=== PATIENT | male | born 1995 | race Caucasian/White ===

== ENCOUNTER 2023-06-02 23:48 | Emergency (ER) | payer OTHER ==
--- NOTE | 2023-06-03 01:22 | ER ---
Nurse's Notes [facility] Name: Yuly Sanford Age: 27 yrs Sex: Male : 1995 Arrival Date: 06/02/2023 Time: 23:48 Bed IW1 Private MD: Diagnosis: Acute upper respiratory infection, unspecified Presentation: 06/03 00:00 Chief complaint: Patient states: flu/covid like symptoms starting today. Coronavirus lg3 screen: Client denies travel out of the [place] in the last 14 days. Client presents with at least one sign or symptom that may indicate coronavirus-19. Standard/surgical mask placed on the client. Ebola Screen: No symptoms or risks identified at this time. Initial Sepsis Screen: Does the patient meet any 2 criteria? No. Patient's initial sepsis screen is negative. Does the patient have a suspected source of infection? No. Patient's initial sepsis screen is negative. Risk Assessment: Do you want to hurt yourself or someone else? Patient reports no desire to harm self or others. Onset of symptoms was June 02, 2023. 00:00 Method Of Arrival: Ambulatory lg3 00:00 Acuity: COLTON 4 lg3 Triage Assessment: 00:01 General: Appears in no apparent distress. comfortable, Behavior is calm, cooperative. lg3 Pain: Complains of pain in generalized body aches. EENT: No deficits noted. Reports nasal congestion. Neuro: No deficits noted. Velez Agitation-Sedation Scale (RASS): 0 - Alert and Calm Level of Consciousness is awake, alert, obeys commands, Oriented to person, place, time, situation. Cardiovascular: No deficits noted. Denies chest pain, Capillary refill < 3 seconds Clubbing of nail beds is absent JVD is absent Patient's skin is warm and dry. Respiratory: No deficits noted. Reports cough that is Airway is patent Respiratory effort is even, unlabored, Respiratory pattern is regular, symmetrical. GI: No deficits noted. No signs and/or symptoms were reported involving the gastrointestinal system. : No deficits noted. No signs and/or symptoms were reported regarding the genitourinary system. Derm: No deficits noted. No signs and/or symptoms reported regarding the dermatologic system. Skin is intact, is healthy with good turgor, Skin is dry, Skin is normal, Skin temperature is warm. Musculoskeletal: No deficits noted. Circulation, motion, and sensation intact. Range of motion: intact in all extremities. Historical: - Allergies: 00:02 No Known Allergies; snw 00:01 No Known Allergies; lg3 - Home Meds: 00:02 None [Active]; snw 00:01 None [Active]; lg3 - PMHx: 00:01 None; lg3 - PSHx: 00:01 right hand; right ankle; lg3 - Immunization history:: Adult Immunizations up to date. - Social history:: Smoking status: Patient reports the use of cigarette tobacco products, smokes one-half pack cigarettes per day, [place], Smoking status: Patient reports the use of cigarette tobacco products, smokes one-half pack cigarettes per day, Patient/guardian denies using alcohol, street drugs. Screenin:32 [facility] ED Fall Risk Assessment (Adult) History of falling in the last 3 months, lg3 including since admission No falls in past 3 months (0 pts). Abuse screen: Denies threats or abuse. Denies injuries from another. Nutritional screening: No deficits noted. Tuberculosis screening: No symptoms or risk factors identified. Assessment: 00:03 General: see triage assessment . lg3 01:09 Reassessment: Patient appears in no apparent distress at this time. No changes from [facility] previously documented assessment. Patient and/or family updated on plan of care and expected duration. Pain level reassessed. Patient is alert, oriented x 3, equal unlabored respirations, skin warm/dry/pink. 01:35 Reassessment: Patient appears in no apparent distress at this time. No changes from [facility] previously documented assessment. Patient and/or family updated on plan of care and expected duration. Pain level reassessed. Patient is alert, oriented x 3, equal unlabored respirations, skin warm/dry/pink. Vital Signs: 00:00 BP 112 / 56; Pulse 57; Resp 19 S; Temp 98.6(TE); Pulse Ox 100% on R/A; Weight 96.16 kg lg3 (R); Height 5 ft. 2 in. ; 01:35 BP 116 / 58; Pulse 55; Resp 18 S; Pulse Ox 100% on R/A; lg3 00:00 Body Mass Index 38.77 (96.16 kg, 157.48 cm) [facility] ED Course: 06/02 23:49 Patient arrived in ED. ag3 23:51 Rae Melara FNP-C [facility]. snw 23:51 Carl Benitez MD is Attending Physician. snw 06/03 00:01 Triage completed. lg3 00:01 Arm band placed on right wrist. lg3 00:32 Patient has correct armband on for positive identification. Warm blanket given. lg3 00:32 Patient maintains SpO2 saturation greater than 95% on room air. lg3 01:35 No provider procedures requiring assistance completed. Patient did not have IV access lg3 during this emergency room visit. Administered Medications: No medications were administered Medication: 01:35 VIS not applicable for this client. lg3 Outcome: 01:21 Discharge ordered by . snw 01:35 Discharged to home ambulatory. lg3 01:35 Condition: stable 01:35 Discharge instructions given to patient, Instructed on discharge instructions, follow up and referral plans. medication usage, Demonstrated understanding of instructions, follow-up care, medications, Prescriptions given X 2. 01:36 Patient left the ED. lg3 Signatures: Rae Melara FNP-C [employer]UT[employer] SPECIALIST-CsnLori Boudreaux ag3 Alda Cruz, RN RN lg3 Corrections: (The following items were deleted from the chart) 00:03 00:02 PSHx: right hand; snw snw 00:03 00:02 PSHx: Right Ankle; snw snw
--- NOTE | 2023-06-03 01:22 | EDPHYS ---
Physician Documentation [facility] Name: Yuly Sanford Age: 27 yrs Sex: Male : 1995 Arrival Date: 06/02/2023 Time: 23:48 Bed IW1 Private MD: ED Physician Carl Benitez HPI: 06/03 00:01 This 27 yrs old Male presents to ER via Unassigned with complaints of Flu Symptoms. snw 00:01 The patient or guardian reports cough, flu symptoms, arthralgias, low-grade fever, snw myalgias. Onset: The symptoms/episode began/occurred suddenly, this morning. Associated signs and symptoms: Pertinent positives: nausea, sore throat, cough, headache, body aches. Severity of symptoms: At their worst the symptoms were moderate. The patient has not experienced similar symptoms in the past, but co-worker has similar symptoms, Coworker tested + for CoVid today. The patient has not recently seen a physician. Historical: - Allergies: 00:02 No Known Allergies; snw 00:01 No Known Allergies; lg3 - Home Meds: 00:02 None [Active]; snw 00:01 None [Active]; lg3 - PMHx: 00:01 None; lg3 - PSHx: 00:01 right hand; right ankle; lg3 - Immunization history:: Adult Immunizations up to date. - Social history:: Smoking status: Patient reports the use of cigarette tobacco products, smokes one-half pack cigarettes per day, The [place], Smoking status: Patient reports the use of cigarette tobacco products, smokes one-half pack cigarettes per day, Patient/guardian denies using alcohol, street drugs. ROS: 00:02 Eyes: Negative for injury, pain, redness, and discharge, ENT: Negative for injury, snw pain, and discharge, Neck: Negative for injury, pain, and swelling, Cardiovascular: Negative for chest pain, palpitations, and edema. 00:02 Back: Negative for injury and pain, : Negative for injury, bleeding, discharge, and swelling, MS/Extremity: Negative for injury and deformity, Skin: Negative for injury, rash, and discoloration. 00:02 Psych: Negative for depression, anxiety, suicide ideation, homicidal ideation, and hallucinations. 00:02 Constitutional: Positive for body aches, fatigue, malaise, poor PO intake. 00:02 Respiratory: Positive for cough. 00:02 Abdomen/GI: Positive for nausea. 00:02 Neuro: Positive for headache. Exam: 01:24 Constitutional: This is a well developed, well nourished patient who is awake, alert, snw and in no acute distress. Head/Face: Normocephalic, atraumatic. Eyes: Pupils equal round and reactive to light, extra-ocular motions intact. Lids and lashes normal. Conjunctiva and sclera are non-icteric and not injected. Cornea within normal limits. Periorbital areas with no swelling, redness, or edema. Neck: Trachea midline, no thyromegaly or masses palpated, and no cervical lymphadenopathy. Supple, full range of motion without nuchal rigidity, or vertebral point tenderness. No Meningismus. Chest/axilla: Normal chest wall appearance and motion. Nontender with no deformity. No lesions are appreciated. Cardiovascular: Regular rate and rhythm with a normal S1 and S2. No gallops, murmurs, or rubs. Normal PMI, no JVD. No pulse deficits. Respiratory: Lungs have equal breath sounds bilaterally, clear to auscultation and percussion. No rales, rhonchi or wheezes noted. No increased work of breathing, no retractions or nasal flaring. Abdomen/GI: Soft, non-tender, with normal bowel sounds. No distension or tympany. No guarding or rebound. No evidence of tenderness throughout. Back: No spinal tenderness. No costovertebral tenderness. Full range of motion. Skin: Warm, dry with normal turgor. Normal color with no rashes, no lesions, and no evidence of cellulitis. MS/ Extremity: Pulses equal, no cyanosis. Neurovascular intact. Full, normal range of motion. Neuro: Awake and alert, GCS 15, oriented to person, place, time, and situation. Cranial nerves II-XII grossly intact. Motor strength 5/5 in all extremities. Sensory grossly intact. Cerebellar exam normal. Normal gait. Psych: Awake, alert, with orientation to person, place and time. Behavior, mood, and affect are within normal limits. :24 ENT: External ear(s): are unremarkable, Ear canal(s): are normal, TM's: dullness, bilaterally, Nose: nasal drainage, that is moderate, and is seen coming from both nares, that is clear, Posterior pharynx: erythema, that is mild, Voice: is normal. Vital Signs: 00:00 BP 112 / 56; Pulse 57; Resp 19 S; Temp 98.6(TE); Pulse Ox 100% on R/A; Weight 96.16 kg lg3 (R); Height 5 ft. 2 in. ; 01:35 BP 116 / 58; Pulse 55; Resp 18 S; Pulse Ox 100% on R/A; lg3 00:00 Body Mass Index 38.77 (96.16 kg, 157.48 cm) lg3 MDM: 06/02 23:51 Patient medically screened. snw 06/03 00:03 Differential diagnosis: bronchitis, flu, URI. Data interpreted: Pulse oximetry: on room snw air is 100 %. Interpretation: normal. Data reviewed: vital signs, nurses notes, lab test result(s). Counseling: I had a detailed discussion with the patient and/or guardian regarding the historical points, exam findings, and any diagnostic results supporting the discharge/admit diagnosis, lab results. 01:25 Response to treatment: There is no appreciated change of the patient's symptoms at this snw time. Special discussion: Based on the history and exam findings, there is no indication for further emergent testing or inpatient evaluation. I discussed with the patient/guardian the need to see the primary care provider for further evaluation of the symptoms. 06/02 23:59 Order name: COVID-19 SARS RT PCR; Complete Time: 01:10 snw 06/02 23:59 Order name: Flu; Complete Time: 01:20 snw 06/02 23:59 Order name: Strep; Complete Time: 01:20 snw 06/03 01:21 Order name: Throat Culture EDMS Administered Medications: No medications were administered Disposition: 03:05 Co-signature as Attending Physician, Carl Benitez MD I agree with the assessment sp4 and plan of care. I reviewed the patient's care provided by the Advanced Practice Provider and agree with the diagnosis and treatment plan. Disposition Summary: 06/03/23 01:21 Discharge Ordered Location: Home snw Condition: Stable snw Diagnosis - Acute upper respiratory infection, unspecified snw Followup: snw - With: Emergency Department - When: As needed - Reason: Worsening of condition Followup: snw - With: Private Physician - When: 2 - 3 days - Reason: Recheck today's complaints, Continuance of care, Re-evaluation by your physician Discharge Instructions: - Discharge Summary Sheet snw - Upper Respiratory Infection, Adult snw - Viral Respiratory Infection snw - Cool Mist Vaporizer snw - Rehydration, Adult snw Forms: - Work release form snw - Medication Reconciliation Form snw - Thank You Letter snw - Antibiotic Education snw - Prescription Opioid Use snw - Patient Portal Instructions snw - Leadership Thank You Letter snw Prescriptions: - Zyrtec 10 mg Oral Tablet - take 1 tablet by ORAL route once daily As needed; 20 tablet; Refills: 0, snw Product Selection Permitted - Pepcid 20 mg Oral Tablet - take 1 tablet by ORAL route once daily; 20 tablet; Refills: 0, Product snw Selection Permitted Signatures: Dispatcher [employer] EDMS Rae Melara, PREFORMS LAMINATOR-C PREFORMS LAMINATOR-Csnw Alda Cruz RN RN lg3 Carl Benitez MD MD sp4 Corrections: (The following items were deleted from the chart) 00:03 00:02 PSHx: right hand; snw snw 00:03 00:02 PSHx: Right Ankle; snw snw
[2023-06-03 01:44] VITALS: TEMP 98.6; O2SAT 100
[2023-06-03 01:45] VITALS: BP 116/58
== END 2023-06-03 01:36 | disposition home or self-care (01) ==
LOC: ER 23:48
DX: J06.9 Acute upper respiratory infection, unspecified (principal); F17.210 Nicotine dependence, cigarettes, uncomplicated; Z20.822 Contact with and (suspected) exposure to COVID-19
CPT/HCPCS: 87070; 87081; 87635; 87804; 99284